=== PATIENT | female | born 1975 | race Caucasian/White ===

== ENCOUNTER 2017-07-10 16:11 | Emergency (ER) | payer SELFPAY ==
[~2017-07-10] VITALS: Ht 167.6 cm; Wt 63.5 kg
--- NOTE | 2017-07-10 16:36 | NUR ---
Patient ambulated to bathroom with brisk steady gait.
--- NOTE | 2017-07-10 16:45 | NUR ---
Patient discharged to home in stable conditon. Written and verbal after care instructions given to patient and spouse. Patient and spouse verbalized understanding of instructions. List of "detox" treatment centers around [facility] was provided to patient and spouse. Patient left ER with brisk steady gait.
== END 2017-07-10 16:47 | disposition home or self-care (01) ==
LOC: ER 16:12
DX: F10.129 Alcohol abuse with intoxication, unspecified (principal); Z88.2 Allergy status to sulfonamides
CPT/HCPCS: A4663

== ENCOUNTER 2017-08-06 12:14 | Inpatient (IN) | payer SELFPAY ==
[~2017-08-06] VITALS: Ht 167.6 cm; Wt 63.5 kg
[2017-08-06 13:23] LABS: *BILIRUBIN,URIN NEGATIVE (NEGATIVE); *BLOOD, URINE 2+ (NEGATIVE); *CLARITY,URINE SLIGHTLY CLOUDY (CLEAR); *COLOR,URINE YELLOW (YELLOW); *KETONES,URINE NEGATIVE (NEGATIVE); *UROBILINOGEN,URINE 0.2 E.U./dl (NORMAL); LEUKOCYTE ESTERASE ,URINE NEGATIVE (NEGATIVE); NITRITE, URINE NEGATIVE (NEGATIVE); PH,URINE 7.5 (5.0-8.0); UGLUCOSE NEGATIVE (NEGATIVE)
[2017-08-06] MEDS ORDERED: IOHEXOL 300MG/ML 100 ML INFUS..BTL ONE (13:29)
[2017-08-06] MEDS ORDERED: IV NORMAL SALINE 250 ML IV ONE (13:29)
[2017-08-06 13:34] LABS: *URINE HCG, QUAL NEGATIVE (NEGATIVE)
[2017-08-06 13:35] LABS: *PROTEIN,URINE NEGATIVE (NEGATIVE)
[2017-08-06 13:40] LABS: BACTERIA,URINE FEW /HPF (NONE SEEN); MUCUS,URINE FEW /LPF (0-FEW); SQUAMOUS EPITHELIAL CELL,UR FEW /HPF (NONE SEEN)
--- NOTE | 2017-08-06 13:40 | NUR ---
PT SIGNED CONSENT FOR IV CONTRAST, PLACED IN THE CHART.
[2017-08-06 13:44] LABS: BASOPHILS % (AUTO) 0.2 % (0.0-2.0); CARBON DIOXIDE 26 mmol/L (21-32); CHLORIDE 105 mmol/L (98-107); CREATININE 0.5 mg/dL (0.6-1.3); EOSINOPHILS # (AUTO) 0.1 K/uL (0.0-0.7); EOSINOPHILS % (AUTO) 0.7 % (0.0-7.0); GLUCOSE 107 mg/dL (74-106); HEMATOCRIT 36.7 % (37-47); HEMOGLOBIN 12.3 G/DL (12.0-16.0); LYMPHOCYTES # (AUTO) 0.7 K/UL (0.8-4.8); LYMPHOCYTES % (AUTO) 9.7 % (20.5-51.5); MEAN CORPUSCULAR HEMOGLOBIN 32.1 UUG (27.0-31.0); MEAN CORPUSCULAR HGB CONC 34 g/dL (32.0-37.0); MEAN CORPUSCULAR VOLUME 95.6 FL (81.0-99.0); MONOCYTES # (AUTO) 0.3 K/UL (0.1-1.30); NEUTROPHILS # (AUTO) 6.1 K/UL (1.8-8.9); NEUTROPHILS % (AUTO) 85.4 % (38.5-71.5); POTASSIUM 3.4 mmol/L (3.5-5.1); RED BLOOD CELL COUNT(AUTO) 3.84 MIL/UL (4.2-5.4); UREA NITROGEN, BLOOD 10 mg/dL (7-18); WHITE BLOOD COUNT (AUTO) 7.2 K/UL (4.0-11.2)
[2017-08-06 13:45] LABS: PLATELET COUNT (AUTO) 274 K/UL (150-450)
[2017-08-06 13:50] LABS: ALANINE AMINOTRANSFERASE 19 U/L (14-59); ALKALINE PHOSPHATASE 57 U/L (50-136); ASPARTATE AMINOTRANSFERASE 19 U/L (15-37); BILIRUBIN,TOTAL 0.4 mg/dL (0.2-1.0); CREATINE KINASE, TOTAL 43 U/L (26-192); LIPASE 159 U/L (73-393); TOTAL PROTEIN, SERUM 6.9 g/dL (6.4-8.2)
--- NOTE | 2017-08-06 14:00 | NUR ---
PT OUT OF ER FOR CT.
[2017-08-06] MEDS ORDERED: MORPHINE SULFATE 2 MG/1 ML DISP.SYRIN IV ONE (15:26)
[2017-08-06] MEDS ORDERED: CIPROFLOXACIN IV 400 MG in PREMIXED 1 EACH IV ONE (15:30)
[2017-08-06] MEDS ORDERED: CIPROFLOXACIN LACTATE/D5W 400 MG/200 ML PIGGYBACK IV ONE (15:30)
[2017-08-06] MEDS ORDERED: METRONIDAZOLE 500 MG/NS 100ML 500 MG in PREMIXED 1 EACH IV ONE (15:30)
[2017-08-06] MEDS ORDERED: IV NS 1000 ML 1,000 ML IV PRN (15:30)
[2017-08-06] MEDS ORDERED: POTASSIUM CHLORIDE 20 MEQ TAB.PRT.SR PO ONE (15:42)
[2017-08-06] MEDS ORDERED: METRONIDAZOLE 500 MG/NS 100ML 100 ML IV ONE (16:07)
[2017-08-06] MEDS ORDERED: POTASSIUM CHLORIDE 20 MEQ TAB.PRT.SR ONE (16:07)
[2017-08-06] MEDS ORDERED: ACETAMINOPHEN 325 MG TABLET PO PRN (16:30)
[2017-08-06] MEDS ORDERED: Z GUARD REMEDY PASTE 57 GM TUBE TOP PRN (16:30)
[2017-08-06] MEDS ORDERED: MAGNESIUM HYDROXIDE 30 ML LIQUID UDC PO PRN (16:30)
[2017-08-06] MEDS ORDERED: HYDROMORPHONE 1 MG/1 ML DISP.SYRIN IV PRN (16:30)
[2017-08-06] MEDS ORDERED: ONDANSETRON 4 MG/2 ML VIAL IV PRN (16:30)
--- NOTE | 2017-08-06 17:15 | NUR ---
Patient admitted to room after xrays of knee, large bumps of back of knee, patient states left neck lymph nodes enlarged, less large today. Pain level is 8-9/10, in abdomen. lower back and behind knees.
[2017-08-06 18:05] VITALS: BP 129/87
--- NOTE | 2017-08-06 19:30 | NUR ---
Pt in room alert awake and states pain to abdomen and lower backside. No acute distress or c/o SOB. On continuous IV hydration NS @125ml/hr. Pt stated bumps to back of knees. Call light placed within reach. Continue to monitor.
[2017-08-06 19:35] VITALS: BP 142/81
[2017-08-06] MEDS: HYDROCODONE/APAP 5-325MG TABLET PO PRN (20:54)
[2017-08-06] MEDS: METRONIDAZOLE 500 MG/NS 100ML 500 MG in PREMIXED 1 EACH IV SCH (21:01)
[2017-08-06] MEDS: IV NS 1000 ML 1,000 ML IV PRN (21:12)
[2017-08-06] MEDS: HYDROMORPHONE 4 MG/1 ML DISP.SYRIN IV PRN (22:12)
--- NOTE | 2017-08-07 01:00 | NUR ---
Pt in room asleep at this time. States previous Dilaudid medication able to relieve. Reported [place] was ineffective last night. Continue to monitor. No reaction to current Flagyl IV therapy. Call light placed within reach.
[2017-08-07] MEDS: CIPROFLOXACIN IV 400 MG in PREMIXED 1 EACH IV SCH ×2 (03:44→15:50)
[2017-08-07] MEDS: HYDROMORPHONE 4 MG/1 ML DISP.SYRIN IV PRN ×5 (03:52→20:12)
[2017-08-07] MEDS: METRONIDAZOLE 500 MG/NS 100ML 500 MG in PREMIXED 1 EACH IV SCH ×3 (05:42→21:19)
[2017-08-07 06:59] LABS: BASOPHILS % (AUTO) 0.3 % (0.0-2.0); EOSINOPHILS # (AUTO) 0.1 K/uL (0.0-0.7); EOSINOPHILS % (AUTO) 1.1 % (0.0-7.0); HEMATOCRIT 34.5 % (31.2-41.9); HEMOGLOBIN 11.4 g/dL (10.9-14.3); LYMPHOCYTES # (AUTO) 1.2 K/uL (20.0-40.0); LYMPHOCYTES % (AUTO) 21.8 % (20.5-51.5); MEAN CORPUSCULAR HEMOGLOBIN 32.2 uug (24.7-32.8); MEAN CORPUSCULAR HGB CONC 33 g/dL (32.3-35.6); MEAN CORPUSCULAR VOLUME 97.5 fL (75.5-95.3); MONOCYTES # (AUTO) 0.4 K/uL (2.0-10.0); NEUTROPHILS # (AUTO) 3.8 K/uL (1.8-8.9); NEUTROPHILS % (AUTO) 68.8 % (38.5-71.5); PLATELET COUNT (AUTO) 217 K/uL (179-408); RED BLOOD CELL COUNT(AUTO) 3.54 MIL/uL (3.63-4.92); WHITE BLOOD COUNT (AUTO) 5.6 K/uL (3.8-11.8)
[2017-08-07 07:26] LABS: CREATININE 0.7 mg/dL (0.6-1.3); MAGNESIUM 1.9 mg/dL (1.8-2.4); PHOSPHOROUS 3.2 mg/dL (2.5-4.9); POTASSIUM 3.2 mmol/L (3.5-5.1); THYROID STIMULATING HORMONE 0.327 mIU/mL (0.358-3.740)
[2017-08-07 11:20] VITALS: BP 144/89
[2017-08-07] MEDS ORDERED: POTASSIUM CHLORIDE 20 MEQ TAB.PRT.SR PO ONE (15:00)
[2017-08-07 15:36] VITALS: BP 145/78
--- NOTE | 2017-08-07 18:27 | NUR ---
PT AWAKE IN BED, IN NO ACUTE DISTRESS. MEDICATED FOR PAIN THROUGHOUT SHIFT ORDERED. IV INTACT AND PATENT, IVF INFUSING WELL. STOOL SENT FOR C-DIFF. ALL SAFETY AND COMFORT MEASURES MAINTAINED THROUGHOUT SHIFT, CALL LIGHT IN REACH
--- NOTE | 2017-08-07 19:30 | NUR ---
Pt alert awake in room in no acute distress. Able to follow simple commands and made aware of clear diet. No reaction to current IV abx therapy. Continues to state pain to lower backside and requesting medication. Continue to monitor. Call light placed within reach.
[2017-08-07 19:40] VITALS: BP 133/87
[2017-08-07] MEDS: HYDROCODONE/APAP 5-325MG TABLET PO PRN (21:29)
[2017-08-08] MEDS: HYDROMORPHONE 4 MG/1 ML DISP.SYRIN IV PRN ×6 (00:16→21:47)
--- NOTE | 2017-08-08 00:29 | NUR ---
Stool sample collected and temp now 98.8. No acute distress. continue to monitor.
--- NOTE | 2017-08-08 01:00 | NUR ---
Pt in room asleep at this time. Pt relieved from previous Dilaudid medication. Pt aware of clear liquid diet in effect at this time. Continue to monitor.
[2017-08-08 04:00] VITALS: BP 126/82
[2017-08-08] MEDS: CIPROFLOXACIN IV 400 MG in PREMIXED 1 EACH IV SCH ×2 (04:02→16:25)
--- NOTE | 2017-08-08 05:00 | NUR ---
Pt in room alert in no acute distress. No reaction to current IV abx Cipro and Flagyl. Continues to urinate clear urine and pain to lower back. Continue to monitor. Aware of upcoming GI consult. Call light placed within reach.
[2017-08-08] MEDS: METRONIDAZOLE 500 MG/NS 100ML 500 MG in PREMIXED 1 EACH IV SCH ×3 (05:31→21:48)
[2017-08-08] MEDS: IV NS 1000 ML 1,000 ML IV PRN (06:02)
[2017-08-08 06:50] LABS: CARBON DIOXIDE 26 mmol/L (21-32); CHLORIDE 109 mmol/L (98-107); CREATININE 0.4 mg/dL (0.6-1.3); GLUCOSE 109 mg/dL (74-106); POTASSIUM 3.8 mmol/L (3.5-5.1); UREA NITROGEN, BLOOD 6 mg/dL (7-18)
--- NOTE | 2017-08-08 07:30 | NUR ---
ALERT AND ORIENTED X3 ON AND OFF ANXIETY. AWAITING GI CONSULT
--- NOTE | 2017-08-08 11:00 | NUR ---
SEEN BY DR LEE SEE NOTES
[2017-08-08 11:15] VITALS: BP 118/70
--- NOTE | 2017-08-08 13:30 | NUR ---
seen by hospitalist spoke with patient plan for clonoscopy/egd in AM
[2017-08-08] MEDS ORDERED: GOLYTELY 4000 ML BOTTLE PO ONE (14:15)
[2017-08-08] MEDS ORDERED: FLEET ENEMA 133 ML BOTTLE RC ONE (14:15)
[2017-08-08] MEDS ORDERED: MAGNESIUM CITRATE 296 ML BOTTLE PO ONE (14:15)
[2017-08-08 15:18] VITALS: BP 122/74
[2017-08-08 19:20] VITALS: BP 124/80
--- NOTE | 2017-08-08 23:17 | NUR ---
Patient at this time is refusing maintenance IV fluids. Teaching provided of risks/benefits. Continues to refuse.
[2017-08-09] MEDS: HYDROMORPHONE 4 MG/1 ML DISP.SYRIN IV PRN ×2 (02:24→06:10)
[2017-08-09 04:00] VITALS: BP 114/64
[2017-08-09] MEDS: CIPROFLOXACIN IV 400 MG in PREMIXED 1 EACH IV SCH (05:00)
[2017-08-09] MEDS: METRONIDAZOLE 500 MG/NS 100ML 500 MG in PREMIXED 1 EACH IV SCH ×2 (06:10→14:00)
[2017-08-09] MEDS ORDERED: HYDROMORPHONE 4 MG/1 ML DISP.SYRIN ONE (06:24)
--- NOTE | 2017-08-09 08:00 | NUR ---
Awake, alert, oriented x4. NPO reinstructed and maintained
[2017-08-09 08:06] LABS: *GC NAA Negative (Negative)
--- NOTE | 2017-08-09 09:30 | NUR ---
To GI Lab by jozef
--- NOTE | 2017-08-09 11:15 | NUR ---
Received by bed s/p EGD. Awake, alert. Vital signs taken and recorded. Started on juice and crackers, diet advanced to regular for lunch. Refused IVF.
[2017-08-09 11:40] VITALS: BP 148/88
--- NOTE | 2017-08-09 15:09 | NUR ---
Tolerated diet. With discharge order to home. Saline lock removed. Prescription and DC instruction given to patient, verbalized understanding.
[2017-08-09] MEDS ORDERED: PROPOFOL 200 MG/20 ML BOTTLE IV ONE (15:54)
[2017-08-09] MEDS ORDERED: IV NORMAL SALINE 1000 ML BAG IV ONE (15:54)
[2017-08-09] MEDS ORDERED: LIDOCAINE HCL 2% 20 ML VIAL MC ONE (15:54)
--- NOTE | 2017-08-09 15:55 | NUR ---
Provided resource for Medical application and community resources. Went home per ambulatory per request in fair condition, not in distress, afebrile.
[2017-08-10 09:08] LABS: *TRIC.VAG. NAA Negative (Negative)
== END 2017-08-09 15:55 | disposition home or self-care (01) | DRG 373 ==
LOC: ER 12:17 → TELE 16:50 → MED 18:08
PROVIDERS: ADMIT Internal Medicine; ATTEND Internal Medicine
PROC: 0DBM8ZZ Excision of Descending Colon, Via Natural or Artificial Opening Endoscopic (ICD-10-PCS; principal; 2017-08-09 10:00)
PROC: 0DBE8ZX Excision of Large Intestine, Via Natural or Artificial Opening Endoscopic, Diagnostic (ICD-10-PCS; principal; 2017-08-09 10:00)
PROC: 0DBL8ZZ Excision of Transverse Colon, Via Natural or Artificial Opening Endoscopic (ICD-10-PCS; principal; 2017-08-09 10:00)
PROC: 0DBB8ZX Excision of Ileum, Via Natural or Artificial Opening Endoscopic, Diagnostic (ICD-10-PCS; principal; 2017-08-09 10:00)
DX: A04.9 Bacterial intestinal infection, unspecified (principal); E83.51 Hypocalcemia; K63.5 Polyp of colon; E05.90 Thyrotoxicosis, unspecified without thyrotoxic crisis or storm; E87.6 Hypokalemia; F32.9 Major depressive disorder, single episode, unspecified; F41.9 Anxiety disorder, unspecified; K64.0 First degree hemorrhoids; R60.9 Edema, unspecified; F10.20 Alcohol dependence, uncomplicated
CPT/HCPCS: 36415; 70030-TC; 71010; 73565; 83690; 83735; 84100; 84443; 84703; 85025; 85651; 86140; 86625; 87046; 87086; 87177; 87491; 89055; 93005; A4217; A4663; J0744; J1170; J2270; J2405; J3490; J7030; J7050; Q9967